=== PATIENT | female | born 1940 | race Caucasian/White ===

== ENCOUNTER 2018-08-27 09:44 | Emergency (ER) | payer MEDICARE, OTHER ==
[~2018-08-27] VITALS: Ht 162.6 cm; Wt 72.6 kg
[~2018-08-27 09:44] MED LIST: CALCIUM + D 601 EAC1 PO; MAXZIDE-25 MG1 EACH PO; Z.0.LISINOPRIL10 MG PO; Z.0.LOVASTATIN40 MG PO; Z.0.ZANTAC 7575 MG PO; [UNRECOGNIZED DRUG - OTHER] PO; [UNRECOGNIZED DRUG - OTHER] PO
[2018-08-27] MEDS ORDERED: SODIUM CHLORIDE 0.9% 1000ML 1,000 ML IV SCH (10:00)
[2018-08-27] MEDS ORDERED: HYDROCODONE/APAP 5MG-325MG TAB PO ONE (10:30)
[2018-08-27 10:37] LABS: BASOPHILS # (AUTO) 0.1 (0.0-0.1); BASOPHILS % 0.5 % (0.0-1.0); EOSINOPHILS # (AUTO) 0.4 (0.0-0.4); EOSINOPHILS % 3.8 % (0.0-6.0); HEMATOCRIT 30.8 % (34.2-44.1); HEMOGLOBIN 10.1 g/dL (12.0-16.0); LYMPHOCYTES # (AUTO) 2.5 (1.0-3.2); LYMPHOCYTES % 23.7 % (18.0-39.1); MEAN CORPUSCULAR HEMOGLOBIN 30.5 pg (28-32); MEAN CORPUSCULAR HGB CONC 32.8 g/dL (31-35); MEAN CORPUSCULAR VOLUME 93.1 fL (81-99); MONOCYTES # (AUTO) 0.8 (0.2-0.8); NEUTROPHILS # (AUTO) 6.7 (2.1-6.9); NEUTROPHILS % 62.9 % (38.7-80.0); PLATELET COUNT 413 x10e3/uL (140-360); RED BLOOD COUNT 3.31 x10e6/uL (3.6-5.1); RED CELL DISTRIBUTION WIDTH 13.3 % (11.7-14.4)
[2018-08-27 10:47] LABS: COLOR,URINE YELLOW (YELLOW)
[2018-08-27 10:48] LABS: CLARITY,URINE CLOUDY (CLEAR); LEUKOCYTE ESTERASE ,URINE 2+ (NEGATIVE)
[2018-08-27 10:49] LABS: BILIRUBIN,URINE NEGATIVE (NEGATIVE); KETONES,URINE NEGATIVE (NEGATIVE); NITRITE,URINE NEGATIVE (NEGATIVE); PROTEIN,URINE DIPSTICK TRACE (NEGATIVE); URINE UROBILINOGEN 1 mg/dL (0.2 - 1)
[2018-08-27 10:55] LABS: ALANINE AMINOTRANSFERASE 34 IU/L (0-55); ALBUMIN 2.6 g/dL (3.5-5.0); ALBUMIN/GLOBULIN RATIO 0.7 (0.8-2.0); ALKALINE PHOSPHATASE 178 IU/L (40-150); BLOOD UREA NITROGEN 22 mg/dL (7-26); BUN/CREATININE RATIO 26 (6-25); CALCIUM 8.9 mg/dL (8.4-10.2); CARBON DIOXIDE 23 mmol/L (22-29); CHLORIDE 105 mmol/L (98-107); CREATINE KINASE 61 IU/L (29-168); CREATININE, SERUM 0.86 mg/dL (0.57-1.11); EST GLOMERULAR FILTRATION RATE > 60 ML/MIN (60-); GLUCOSE 118 mg/dL (74-118); SODIUM 140 mmol/L (136-145)
--- NOTE | 2018-08-27 10:56 | Diagnostic Imaging Report ---
PROCEDURE: A single AP view of the chest. COMPARISON: Chest radiograph 03/27/2011. INDICATIONS: AMS, CONFUSION FINDINGS: Lines/tubes: None. Lungs: Low lung volumes. No evidence of lobar consolidation. No evidence of pulmonary edema. Pleura: There is no pleural effusion or pneumothorax. Heart and mediastinum: The cardiomediastinal silhouette is unchanged. The thoracic aorta is ectatic. Bones: No acute bony abnormality. Partially seen fixation hardware in the lower spine. IMPRESSION: No acute radiographic abnormality. Dictated by: NOBLE OSCAR M.D. on 08/27/2018 at 11:04 Electronically approved by: NOBLE OSCAR M.D. on 08/27/2018 at 11:04
[2018-08-27 11:33] LABS: BACTERIA,URINE MODERATE /HPF
[2018-08-27 11:34] LABS: EPITHELIAL CELLS,URINE RARE /LPF; MUCUS,URINE RARE (RARE); TRIPLE PHOSPHATE CRYSTAL,UR RARE (FEW); YEAST,URINE RARE
[2018-08-27] MEDS ORDERED: TRIMETHOPRIM/SULFAMETHOXAZOLE 160-800 MG TAB PO ONE (11:45)
--- NOTE | 2018-08-27 11:59 | Diagnostic Imaging Report ---
History:Right face twitching Comparison studies:CT head 02/25/2016 Technique: Axial images were obtained from the skull base to the vertex. Coronal and sagittal images reconstructed from the axial data. Intravenous contrast: None Dose modulation, iterative reconstruction, and/or weight based adjustment of the mA/kV was utilized to reduce the radiation dose to as low as reasonably achievable. Image quality: Motion degrades images of the skull base, limiting evaluation. Findings: Scalp/skull: No abnormalities. Extra-axial spaces: No masses. No fluid collections. Brain sulci: Mildly prominent. Ventricles: Mild compensatory dilatation. No hydrocephalus. Parenchyma: Scattered small hypodensities in the supratentorial white matter are small vessel ischemic changes. No masses, hemorrhage, acute or chronic cortical vascular insults. Sellar/suprasellar region: No abnormalities. Craniocervical junction: Patent foramen magnum. No Chiari one malformation. Incidental findings: Atherosclerotic calcifications in the carotid siphons . Impression: No acute abnormalities. Chronic findings: 1. Mild generalized volume loss. 2. Mild to moderate supratentorial white matter small vessel ischemic changes. Signed by: DR Cale Tucker M.D. on 08/27/2018 11:56 AM
[2018-08-27 12:54] VITALS: BP 137/71
[2018-08-27 13:51] LABS: EOSINOPHILS % (MANUAL) 9 % (0-7); LYMPHOCYTES % (MANUAL) 26 % (19-48); MONOCYTES % (MANUAL) 2 % (3.4-9.0); NEUTROPHILS % (MANUAL) 61 % (40-74)
[2018-08-27 13:54] LABS: ANISOCYTOSIS SLIGHT; HYPOCHROMASIA SLIGHT; PLATELET ESTIMATE ADEQUATE; PLATELET MORPHOLOGY COMMENT FEW LARGE; RBC MORPHOLOGY COMMENT NORMAL
--- OUTSIDE RECORDS SUMMARY | 2018-08-31 13:17 | XMS REPORT | Continuity of Care Document ---
Author Author [facility] Interface Address Unknown Phone Unavailable Problems Problem Status Onset Date Classification Date Reported Comments Source CLOSED DISPALCED FX OF LT FEMORAL NECK, Active 08/16/2018 [place] Active 08/16/2018 [facility] FRACTURE OF UNSP PART OF NECK OF LEFT FE Active [facility] ESSENTIAL (PRIMARY) HYPERTENSION Active [facility] Medications Medication Details Route Status Patient Instructions Ordering Provider Order Date Source Allergies, Adverse Reactions, Alerts Substance Category Reaction Severity Reaction type Status Date Reported Comments Source Immunizations Immunization Date Given Site Status Last Updated Comments Source Results Order Name Results Value Reference Range Date Interpretation Comments Source Chest 1view DX Chest 1view DX Two-view chest Patient Name: SILVER HAMLIN : 1940; Age: 77 years Female MR: [id number] Study: Chest 1view DX Order Time: 08/19/2018 12:50 PM CDT Clinical Indication: - cough. COMPARISON: None FINDINGS: Views: 2 Low lung volumes accentuate the cardiomediastinal silhouette. There is no convincing focal consolidation or effusion. Prominent bronchovascular markings may reflect low lung lines. Upper abdomen is unremarkable. No pneumothorax. IMPRESSION: Low lung volumes. No convincing focal consolidation or large effusion. SL: [id number] 08/19/2018 - - Read by: Jamie Allen MD Dictated Date/time: 08/19/18 16:05 Electronically Signed by: Jamie Allen MD 08/19/18 16:09 FINAL REPORT [facility] Hip 1 view DX Hip 1 view DX Patient Name: SILVER HAMLIN : 1940; Age: 77 years y/o Female MR: [id number] * LEFT HIP, intraoperative, History: Left femoral neck fracture. Intraoperative radiographs obtained during hip arthroplasty Technique: Multiple intraoperative digital C-arm images of the left hip were obtained utilizing during left hip arthroplasty. Frontal neutral, external rotation, internal rotation, abduction, abduction, extension, and flexion views were obtained. It is indicated the fluoroscopy time was 49 seconds. Radiation dose - reference air kerma: 6.19 mGy. IMPRESSION: The left total hip prosthesis appears to be in good position. There is no evidence of unexpected fracture. No instability is seen with the various positional maneuvers. SL: [id number] 08/17/2018 - - Read by: Harpal Perez MD Dictated Date/time: 08/17/18 14:43 Electronically Signed by: Harpal Perez MD 08/17/18 14:44 FINAL REPORT [facility] Femur series DX Femur series DX Exam: Left Femur series DX Clinical Indication: - pain sp fall. Comparison: None. FINDINGS: The 2 views of the femur show normal alignment without fractures or dislocations. Left femoral neck fracture probably subcapital. The visualized adjacent hip and knee regions are unremarkable. There is no soft tissue swelling or radiopaque foreign bodies. Left knee total arthroplasty. Post surgical changes lower lumbar spine. If there is further concern, recommend follow-up radiographs or bone scan for complete assessment. IMPRESSION: 1. Left femoral neck fracture probably subcapital. 2. Slight discontinuity in the left superior pubic rami could be artifact however fracture cannot be excluded. CT correlation would be the next step if clinically indicated. SL: [id number] 08/16/2018 - - Read by: Tal Rousseau DO Dictated Date/time: 08/16/18 22:52 Electronically Signed by: Tal Rousseau DO 08/16/18 22:54 FINAL REPORT [facility] Hip 2/3 views uni w pelvis DX Hip 2/3 views uni w pelvis DX Exam: Left Hip 2/3 views uni w pelvis DX Clinical Indication: - fall. Left hip pain. Comparison: None. TECHNIQUE: Frontal view of the pelvis and dedicated views of left hip-3 radiographs. FINDINGS-IMPRESSION: Acute, displaced, subcapital left femoral neck fracture. Mild superior displacement of the femoral neck and proximal shaft measuring up to 1.1 cm. Left as well as right hip joint alignment is maintained. Moderate degenerative changes in the form of marginal osteophytosis and joint space narrowing. Also acute, mildly displaced fracture of left inferior pubic ramus and possibly left superior pubic ramus. Pubic symphysis is congruent. Partially images fusion hardware within the lower lumbar spine. Surgical clips projecting over the pelvis. Pelvic phleboliths. Overlapping electrocardiogram leads and wires. Visualized soft tissues are grossly normal. This result was informed by Dr. Salinas to Dr. Mars at 10:40 PM on 08/16/2018. SL: MICHAEL 08/16/2018 - - Read by: Jose Salinas MD Dictated Date/time: 08/16/18 22:07 Electronically Signed by: Jose Salinas MD 08/16/18 22:15 FINAL REPORT [facility] Brain wo contrast CT Brain wo contrast CT EXAM: CT BRAIN WITHOUT CONTRAST DATE: 08/16/2018 9:03 PM CDT INDICATION: Head pain. Trauma. COMPARISON: None. TECHNIQUE: Noncontrast axial imaging of the brain was acquired from the vertex to the skull base. Reformatted coronal and sagittal images were provided for review. CT radiation dose DLP: 981.84 mGy-cm. FINDINGS: No acute intracranial hemorrhage, midline shift, or mass effect is identified. The [place]-white matter differentiation is preserved. The ventricles and extra- axial spaces are prominent, compatible with mild diffuse parenchymal volume loss. Moderate chronic microangiopathic changes are noted. The orbits, paranasal sinuses, and mastoid air cells are unremarkable. Degenerative changes of the temporomandibular joints are identified. The calvarium and skull base are intact. There is atherosclerotic calcification of the carotid siphons. IMPRESSION: 1. No acute intracranial hemorrhage or mass effect. 2. Moderate chronic microangiopathic changes within the supratentorial white matter. SL: [id number] 08/16/2018 - - Read by: Richmond Farias MD Dictated Date/time: 08/16/18 21:28 Electronically Signed by: Richmond Farias MD 08/16/18 21:33 FINAL REPORT [facility] Chest 1view DX Chest 1view DX Patient Name: SILVER HAMLIN : 1940; Age: 77 years y/o Female MR: [id number] Study: Chest 1view DX 08/16/2018 9:03 PM CDT Ordering Physician: Primo Garcia MD Comparison: 06/17/2007 Clinical Indication: - fall; chest pain Suboptimal inspiratory effort and portable technique accentuates the cardiomediastinal silhouette. The cardiac silhouette is not enlarged. The thoracic aorta is mildly tortuous and ectatic with vascular calcification at the thoracic aortic arch. Nonspecific prominence of the central hilar pulmonary arterial vasculature is noted bilaterally. No pulmonary venous vascular congestion. Lungs are clear. No consolidation or pleural fluid collection. The bony thorax appears grossly intact. Right rotator cuff arthropathy. Degenerative arthrosis at the glenohumeral joints bilaterally. IMPRESSION: No acute cardiopulmonary process. Senescent changes of the cardiomediastinal silhouette accentuated by suboptimal inspiratory effort and portable technique. SL: [id number] 08/16/2018 - - Read by: Yobany Rubalcava MD Dictated Date/time: 08/16/18 22:06 Electronically Signed by: Yobany Rubalcava MD 08/16/18 22:07 FINAL REPORT [facility] Spine cervical wo contrast CT Spine cervical wo contrast CT Patient Name: SILVER HAMLIN : 1940. Age: 77 years. Gender: Female. MR: [id number]. Location: [facility]. Provider: Primo Garcia MD. EXAM: Spine cervical wo contrast CT. PROVIDED CLINICAL HISTORY: Severe left hip pain after falling at home in kitchen. TECHNIQUE: Axial images through the cervical spine with coronal and sagittal reformats. EXPOSURE: Total exam DLP is 812.37 mGy-cm. COMPARISON: No relevant prior exams available at the time of interpretation. FINDINGS: LIMITATIONS: Please note that the intervertebral disks, epidural spaces, and cord are suboptimally evaluated, a common CT limitation, especially along the lower cervical and upper thoracic spine, where the patient's shoulders contribute to beam-hardening artifact. ALIGNMENT / GENERAL ASSESSMENT: -- Mild scoliotic curvature and anterior-posterior straightening of the cervical spine. No aggressive bone lesions. No definite epidural hematoma or other fluid collection or mass within exam limits. -- No acute fracture or malalignment of the imaged spine. 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 DEGENERATIVE CHANGES: -- Multi-level spondylosis, most advanced and moderate-severe at C3-C4, C4-C5, C5-C6, and C6-C7, where [id number] narrow the canal and uncovertebral / facet hypertrophy contribute to nawxo-afgfoel-hcpy-left foraminal narrowing. -- Multi-level subluxations, chronic, related to spondylosis. SOFT TISSUES: No significant paraspinal soft tissue abnormality. INCLUDED VISCERA: Unremarkable. IMPRESSION: Abnormal spine curvature, non-specific, some of which could be due to pain, spasm, and/or positioning. No acute fracture of the imaged spine. Multi-level spondylosis with areas of moderate-severe stenosis. Spine MR (including inversion recovery or fat-suppressed T2 sequence) is recommended for further assessment if there is clinical concern for cord injury, radiculopathy, or other abnormality not adequately explained by the CT findings. Please review details and additional findings / discussion above. SL: SALEEM 08/16/2018 - - Read by: Jair Lewis MD Dictated Date/time: 08/16/18 21:28 Electronically Signed by: Jair Lewis MD 08/16/18 21:45 FINAL REPORT [facility] Vital Signs Vital Sign Value Date Comments Source Encounters Location Location Details Encounter Type Encounter Number Reason For Visit Attending Provider ADM Date DC Date Status Source Procedures Procedure Code Date Perfomer Comments Source
== END 2018-08-27 13:54 | disposition home or self-care (01) ==
LOC: ER 09:44
DX: R41.0 Disorientation, unspecified (principal); N30.90 Cystitis, unspecified without hematuria; I10 Essential (primary) hypertension; F41.9 Anxiety disorder, unspecified; E78.00 Pure hypercholesterolemia, unspecified
CPT/HCPCS: 36415; 70450; 71045; 80053; 81001; 82550; 82553; 84484; 85025; 87086; 87186; 93005; 99284; J7030

== ENCOUNTER → 2018-10-06 | Outpatient (CLI) | payer MEDICARE, OTHER ==
--- NOTE | 2018-10-06 10:04 | Diagnostic Imaging Report ---
EXAMINATION: CT of the pelvis and left femur TECHNIQUE: Spiral CT images of the pelvis and left femur were obtained through the iliac crest through the left proximal tibia. No intravenous contrast was administered. Coronal and sagittal reformatted images were available. COMPARISON: None. CLINICAL HISTORY:Pain in left hip and down the left femur. Patient underwent hip arthroplasty 3 weeks ago DISCUSSION: ABSENCE OF INTRAVENOUS CONTRAST DECREASES SENSITIVITY FOR DETECTION OF FOCAL LESIONS AND VASCULAR PATHOLOGY. Pelvis: Evaluation of the pelvis is markedly limited secondary to streak artifact from orthopedic hardware related to prior lumbar spine fusion as well as recent total left hip arthroplasty. There is atherosclerotic calcification of the abdominal aorta and partially visualized iliac arterial systems without aneurysmal dilatation. The urinary bladder is obscured by streak artifact from hip prosthesis. Uterus is not identified and may have been removed. No adnexal mass. Visualized portions of the small and large bowel show no evidence of distention or wall thickening. No pelvic sidewall or lower retroperitoneal lymphadenopathy. No pelvic free fluid. The bones are diffusely osteopenic. Pedicular screws related to prior spinal fusion with disc spacer placement and laminectomy defects with adjacent bony hypertrophy. There is a subacute fracture of the left sacral ala seen on series 3 image 39, with marginal sclerosis and osseous callus formation. Additionally, there is a subacute, healing fracture of the anterior left acetabulum with extension to the superior pubic ramus exemplified on series 3 image 63 and 69. There is also a subacute fracture of the left inferior pubic ramus with approximately 5 mm displacement and early osseous callus formation as seen on series 3 image 83. 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 No right pelvic fracture. Postsurgical changes of total left hip arthroplasty with intact and appropriately positioned acetabular cup and femoral stem components. Osseous fragments along the greater trochanter are likely degenerative in nature. Femur: Intact surgical hardware related to total left hip arthroplasty. The distal femur is intact. Total left knee arthroplasty is partially visualized. There is diffuse skin thickening and subcutaneous fat stranding along the lateral aspect of the upper thigh, without discrete fluid collection, though evaluation is somewhat limited by beam hardening artifact from femoral hardware. IMPRESSION: Status post total left hip arthroplasty with intact and appropriately positioned acetabular cup and femoral stem components. No femoral fracture. Expected postsurgical changes along the lateral aspect of the upper thigh without drainable fluid collection. Subacute, healing fractures of the left sacral ala, anterior left acetabulum, left superior pubic ramus, and left inferior pubic ramus. The inferior pubic ramus fracture remains mildly displaced. No symphysis pubis or sacroiliac diastases. Background diffuse osteopenia. Postsurgical changes related to multilevel lumbar spine fusion and laminectomy. Atherosclerotic vascular disease. Signed by: Dr. Damien Downs M.D. on 10/06/2018 10:00 AM
== END ==
LOC: CT 08:13
PROVIDERS: ATTEND Internal Medicine
DX: S72.002S Fracture of unspecified part of neck of left femur, sequela (principal); M25.552 Pain in left hip
CPT/HCPCS: 72192